=== PATIENT | female | born 1955 | race Native Hawaiian/Other Pacific Islander ===

== ENCOUNTER 2020-02-13 15:40 | Emergency (ER) | payer OTHER ==
[~2020-02-13] VITALS: Ht 162.6 cm; Wt 67.1 kg
[2020-02-13 16:30] VITALS: BP 118/66; TEMP 98.7
[2020-02-13 17:03] LABS: POTASSIUM 4.3 mmol/L (3.6-5.2)
[2020-02-13 17:08] LABS: PLATELET COUNT 169 K/uL (152-353)
[2020-02-13] MEDS ORDERED: ABILIFY MYCITE15 MG PO (20:07)
[2020-02-13] MEDS ORDERED: LORA2INJ21 INJ (20:09)
[2020-02-13] MEDS ORDERED: HALO50IN4 IM (20:11)
[2020-02-13] MEDS ORDERED: LANTUS100 UNIT/M SC (20:15)
[2020-02-13] MEDS ORDERED: NOVOLOG FL100 UNIT/M SC (20:33)
[2020-02-13] MEDS ORDERED: ONDA4TAB3 PO (20:34)
[2020-02-13] MEDS ORDERED: PANTOPRAZOLE 40MG TA PO (20:36)
[2020-02-13] MEDS ORDERED: POTASSIUM CHLO20 ME2 PO (20:39)
[2020-02-13] MEDS ORDERED: QUETIAPINE400 MG PO (20:41)
[2020-02-13] MEDS ORDERED: QUETIAPINE50 MG PO (20:43)
[2020-02-13] MEDS ORDERED: EQ LAXATIVE8.6 MG PO (20:46)
[2020-02-13] MEDS ORDERED: SERTRALINE HYD100 MG PO (20:47)
[2020-02-13] MEDS ORDERED: GAS RELIEF80 MG PO (20:50)
[2020-02-13] MEDS ORDERED: TYLENOL325 MG PO (20:52)
[2020-02-13] MEDS ORDERED: [UNRECOGNIZED DRUG - CODE] PO (20:53)
== END 2020-02-13 18:00 | disposition other institution (70) ==
LOC: ED 16:11
PROVIDERS: Emergency Medicine
DX: F20.89 Other schizophrenia (principal); Z11.59 Encounter for screening for other viral diseases; Z04.6 Encounter for general psychiatric examination, requested by authority
CPT/HCPCS: 80053; 81000; 85027; 87635; 93005; 99283; U0002

== ENCOUNTER 2021-10-08 19:28 | Emergency (ER) | payer OTHER ==
[~2021-10-08] VITALS: Ht 162.6 cm; Wt 54.4 kg
[~2021-10-08 19:28] MED LIST: ABILIFY MYCITE15 MG PO; ABILIFY MYCITE20 MG PO; ABILIFY MYCITE5 MG PO; ATOR20TA2 PO; DIVA125C PO; EQ LAXATIVE8.6 MG PO; FLUV100T PO; GAS RELIEF80 MG PO; HALO50IN4 IM; INSU300I SC; LANTUS100 UNIT/M SC; LORA2INJ21 INJ; MAGNSUS68 PO; NOVOLOG FL100 UNIT/M SC; OLANZAPINE5 MG PO; ONDA4TAB3 PO; PANTOPRAZOLE 40MG TA PO; POTASSIUM CHLO20 ME2 PO; QUETIAPINE400 MG PO; QUETIAPINE50 MG PO; SERTRALINE HYD100 MG PO; TYLENOL325 MG PO; [UNRECOGNIZED DRUG - CODE] PO
[2021-10-08 20:12] LABS: PLATELET COUNT 236 K/uL (152-353)
[2021-10-08 20:23] LABS: POTASSIUM 4.6 mmol/L (3.6-5.2)
[2021-10-08 21:44] VITALS: BP 129/68; TEMP 97.9
[2021-10-09] MEDS ORDERED: DIGOXIN125 MCG PO (13:16)
[2021-10-09] MEDS ORDERED: POTASSIUM CHLORIDE PO (13:20)
[2021-10-09] MEDS ORDERED: TRULICITY0.75 MG/0. SC (13:21)
[2021-10-09] MEDS ORDERED: LAMOTRIGINE200 MG PO (13:23)
[2021-10-09] MEDS ORDERED: NEURONTIN 100M100 MG PO (13:24)
[2021-10-09] MEDS ORDERED: NOVOLOG100 UNIT/M SC (13:25)
[2021-10-09] MEDS ORDERED: INSU100I2 SC (13:26)
[2021-10-09] MEDS ORDERED: LORA1TAB17 PO (13:28)
[2021-10-09] MEDS ORDERED: LIPITOR20 MG PO (13:29)
[2021-10-09] MEDS ORDERED: TRAZ50TA36 PO (13:30)
[2021-10-09] MEDS ORDERED: ARIPIPRAZOLE20 MG PO (13:33)
[2021-10-09] MEDS ORDERED: METO-837 PO (13:34)
[2021-10-09] MEDS ORDERED: PANTOPRAZOLE SO40 M1 PO (13:35)
[2021-10-09] MEDS ORDERED: FERROUS SU220 MG/5 M PO (13:36)
== END 2021-10-08 21:44 | disposition still patient (30) ==
LOC: ED 19:28
PROVIDERS: Emergency Medicine
DX: F25.8 Other schizoaffective disorders (principal); R45.1 Restlessness and agitation; Z11.52 Encounter for screening for COVID-19; Z04.6 Encounter for general psychiatric examination, requested by authority
CPT/HCPCS: 36415; 80053; 85027; 87635; 93005; 99283; U0003

== ENCOUNTER 2022-09-08 18:51 | Emergency (ER) | payer OTHER ==
[~2022-09-08] VITALS: Ht 175.3 cm; Wt 49.4 kg
[2022-09-08 18:51] VITALS: TEMP 98.7
[~2022-09-08 18:51] MED LIST changes: +ARIPIPRAZOLE20 MG PO; +DIGOXIN125 MCG PEG; +ESCI10TA PO; +FERROUS SU220 MG/5 M PEG; +INSU100I2 SC; +LAMOTRIGINE200 MG PO; +LIPITOR20 MG PO; +LORA1TAB17 PO; +METO-837 PEG; +NEURONTIN 100M100 MG PO; +NOVOLOG100 UNIT/M SC; +OLAN10INJ IM; +PANTOPRAZOLE SO40 M1 PO; +POTASSIUM CHLORIDE PO; +TRAZ50TA36 PO; +TRULICITY0.75 MG/0. SC
[2022-09-08 19:31] LABS: PLATELET COUNT 176 K/uL (152-353)
[2022-09-08 19:39] LABS: POTASSIUM 3.5 mmol/L (3.6-5.2)
[2022-09-08 20:30] VITALS: BP 127/78
[2022-09-09] MEDS ORDERED: ABILIFY20 MG PEG (08:56)
[2022-09-09] MEDS ORDERED: ACET-206 PEG (08:57)
[2022-09-09] MEDS ORDERED: BUSPIRONE10 MG PEG (08:59)
[2022-09-09] MEDS ORDERED: FAMOTIDINE20 MG PEG (09:01)
[2022-09-09] MEDS ORDERED: GLUCAGON EMERGEN1 MG IM (09:03)
[2022-09-09] MEDS ORDERED: FLUPHENAZINE10 MG PEG (09:03)
[2022-09-09] MEDS ORDERED: LAMOTRIGINE200 MG PEG (09:04)
[2022-09-09] MEDS ORDERED: LANTUS100 UNIT/M SC (09:05)
[2022-09-09] MEDS ORDERED: ESCITALOPRAM10 MG PEG (09:05)
[2022-09-09] MEDS ORDERED: LIPITOR10 MG PEG (09:07)
[2022-09-09] MEDS ORDERED: MELATONIN3 M1 PEG (09:08)
[2022-09-09] MEDS ORDERED: [UNRECOGNIZED DRUG - OTHER] PEG (09:10)
[2022-09-09] MEDS ORDERED: ONDANSETRON4 M2 PEG (09:12)
[2022-09-09] MEDS ORDERED: POLYETHYLE17 GM/SCO1 PO (09:13)
[2022-09-09] MEDS ORDERED: POT CHLORIDE PEG (09:20)
[2022-09-09] MEDS ORDERED: TRULICITY0.75 MG/0. SC (09:22)
== END 2022-09-08 20:30 | disposition still patient (30) ==
LOC: ED 18:51
PROVIDERS: Emergency Medicine
DX: F03.911 Unspecified dementia, unspecified severity, with agitation (principal); Z11.52 Encounter for screening for COVID-19; Z04.6 Encounter for general psychiatric examination, requested by authority
CPT/HCPCS: 36415; 80053; 85027; 87635; 93005; 99283; U0003